=== PATIENT | female | born 1955 | race Caucasian/White ===

== ENCOUNTER 2017-05-06 06:32 | Inpatient (IN) | payer OTHER ==
[~2017-05-06] VITALS: Ht 165.1 cm; Wt 141.9 kg
--- NOTE | ~2017-05-06 | CATHLAB ---
[facility] [address] [email or web address] [address] INVASIVE PROCEDURE REPORT Name: KOLBY WILHELM Room #: 213-P ADM IN ..#: [id number] Admission: 05/06/17 Attend Phys: Jayjay Merchant Discharge: Date of : 55 Date of Service: 05/09/17 1737 Report #: [id number] THIS REPORT FOR: //name// APPROVED REPORT Patient Details Patient Status: In-Patient Room #: The patient is a 61 year-old female Event Personnel Mando Blanco Dietitian Therapeutic, Jose Crawford RN, Ezekiel Johnson RN, RN, Jo-Ann Santizo Sandifer, David Monitor Procedures Performed Art Access - R femoral artery* Left Heart Cath w/or w/o Coronaries [id number] [facility] [address] Initial Mod Sed Same Phys/QHP Gr5y [id number] 76582 Mod Sed Same Phys/QHP Ea [id number] Hemostasis with Manual pressure Indication Dyspnea, Positive stress test, Chest pain Risk Factors Obesity, Hypercholesterolemia, Coronary Artery DiseaseHypertension Previous Procedures/Diagnoses Previous PCI Procedure Narrative The Right Wrist^ was infiltrated with 1% Lidocaine subcutaneous anesthesia. A PINNACLE 4FR Sheath #[id number] sheath was inserted into the RFA^. Coronary angiography was performed using coronary diagnostic catheters. The right coronary system was accessed and visualized with a JR4 catheter. The left coronary system was accessed and visualized with a 4FR JL 5.0 #[id number] catheter. The left ventricle was accessed and visualized with a Pigtail catheter. Left ventricular/Aortic Valve gradient assessed via catheter pullback. Left ventriculogram was performed in 30 degree projection. Hemostasis was obtained with manual pressure following sheath removal without any complications. The patient tolerated the procedure well and there were no complications associated with the procedure. There was no hematoma. [facility] [address] [place] [address] INVASIVE PROCEDURE REPORT Name: KOLBY WILHELM Room #: 213-P [facility] IN ..#: [id number] Admission: 05/06/17 Attend Phys: Jayjay Merchant Discharge: Date of : 55 Date of Service: 05/09/17 1737 Report #: [id number] Intraoperative Conscious Sedation Sedation start time: 09:42 Case end Time: 10:16 Fentanyl 50 mcg Versed 2 mg Fluoro Time: 3.07 minutes Dose: 964 mGy Contrast Type and Amount: Omnipaque 110 ml Coronary Angiography The patient's coronary anatomy is right dominant. Diagnostic Cath Left Main patent vessel, with no flow-limiting lesions. LAD Patent vessel, with mild disease. Diagonal 1 Patent vessel, with no flow-limiting lesions. Diagonal 2 100% occlusion at the ostium, the mid and distal segments are filled via collateral circulation. Circumflex There is a moderate stenosis in the mid segment, 50%. OM1 Patent vessel with a moderate stenosis in the proximal segment, 40%. Right Coronary There is a stent in the midsegment, patent with mild restenosis. R PDA Patent vessel, with no flow-limiting lesions. Left Ventriculography The left ventricle is normal in size with normal contractility. The left ventricular ejection fraction is estimated to be >55%. Hemodynamics The aortic pressure is 145/91 mmHg with a mean of 115 mmHg. The left ventricular pressure is 144/20 mmHg with a mean of mmHg. The left ventricular end diastolic pressure is 40 mmHg. Conclusion 1. Patent stent in the mid segment of the RCA with mild restenosis. 2. Total occlusion of the second diagonal artery, with collateral filling of the mid and distal segments. Recommend medical therapy. [facility] [address] [place] [address] INVASIVE PROCEDURE REPORT Name: KOLBY WILHELM Room #: 213-P [facility] IN .R.#: [id number] Admission: 05/06/17 Attend Phys: Jayjay Merchant Discharge: Date of : 55 Date of Service: 05/09/171736 Report #: [id number] 3. Moderate stenosis in the mid left circumflex artery and OM1. 4. Normal LV systolic function. <ELECTRONICALLY SIGNED> By: Mando Blanco MD 05/09/17 173 36 1737 Mando Blanco MD /INF
--- NOTE | ~2017-05-06 | EKG ---
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
[2017-05-06 06:37] VITALS: BP 158/69
[2017-05-06] MEDS ORDERED: PREDNISONE 10 M10 MG PO (07:04)
[2017-05-06] MEDS ORDERED: NORVASC5 MG PO (07:05)
[2017-05-06] MEDS ORDERED: PROTONIX40 M1 PO (07:05)
[2017-05-06] MEDS ORDERED: NORCO 5-325 TA1 EACH PO (07:06)
[2017-05-06] MEDS ORDERED: TRIAMCINOLONE A80 G2 TOP (07:06)
[2017-05-06] MEDS ORDERED: LOPRESSOR100 M1 PO (07:07)
[2017-05-06] MEDS ORDERED: REQUIP 1 MG TABL1 M1 PO (07:07)
[2017-05-06] MEDS ORDERED: NEURONTIN 300300 M1 PO (07:08)
[2017-05-06] MEDS ORDERED: AMBIEN 5 MG TABL5 M1 PO (07:08)
[2017-05-06] MEDS ORDERED: METFORMIN HCL500 MG PO (07:08)
[2017-05-06] MEDS ORDERED: ATORVASTATIN CA40 MG PO (07:09)
[2017-05-06] MEDS ORDERED: COZAAR 50 MG TA50 M2 PO (07:09)
[2017-05-06 07:12] LABS: ABSOLUTE NEUTROPHILS 10.2 thou/uL (1.4-8.2); BASOPHILS 0.9 % (0.0-2.0); EOSINOPHILS 0.5 % (0.0-3.0); HEMATOCRIT 45.8 % (37.0-47.0); LYMPHOCYTES 21.2 % (24.0-44.0); MCH 28.8 pg (26.0-34.0); MCHC 32.8 g/dL (28.0-37.0); MONOCYTES 8.2 % (1.0-8.0); PLATELET COUNT 288 thou/uL (150-400); POLYS 69.2 % (36.0-66.0); RDW 17.1 % (10.5-14.5); WBC 14.8 thou/uL (4.0-11.0)
[2017-05-06 07:19] LABS: ANION GAP 11 mmol/L (7-16); BUN 20 mg/dL (7-18); CALCIUM 9.6 mg/dL (8.5-10.1); CHLORIDE 102 mmol/L (98-107); CO2 26 mmol/L (21-32); CREATININE 0.8 mg/dL (0.6-1.0); GLUCOSE 104 mg/dL (74-106); POTASSIUM 4.7 mmol/L (3.5-5.1); SODIUM 139 mmol/L (136-145)
[2017-05-06 07:27] LABS: TROPONIN-I < 0.04 ng/mL (<0.06)
[2017-05-06 07:33] LABS: APTT 21.7 Seconds (24.5-32.8); PROTIME 9.7 Seconds (9.3-11.4)
[2017-05-06 15:49] VITALS: BP 111/57
[2017-05-06 16:44] VITALS: BP 113/85
[2017-05-06 16:55] VITALS: BP 121/69
[2017-05-06 20:00] VITALS: BP 110/61
[2017-05-07 03:04] LABS: CHLORIDE 102 mmol/L (98-107); POTASSIUM 4.1 mmol/L (3.5-5.1); SODIUM 139 mmol/L (136-145)
[2017-05-07 04:10] LABS: ALBUMIN 3.4 g/dL (3.4-5.0); ANION GAP 9 mmol/L (7-16); BUN 22 mg/dL (7-18); CALCIUM 8.6 mg/dL (8.5-10.1); CO2 28 mmol/L (21-32); CREATININE 0.8 mg/dL (0.6-1.0); GLUCOSE 120 mg/dL (74-106); PHOSPHORUS 5.8 mg/dL (2.5-4.9)
[2017-05-07 04:11] LABS: TROPONIN-I < 0.04 ng/mL (<0.06)
[2017-05-07 04:30] VITALS: BP 123/78
[2017-05-07 07:30] VITALS: BP 131/78
[2017-05-07 11:35] VITALS: BP 131/60
[2017-05-07 15:45] VITALS: BP 108/58
[2017-05-07 19:48] VITALS: BP 127/68
[2017-05-07 23:49] VITALS: BP 134/83
[2017-05-08 03:49] VITALS: BP 131/84
[2017-05-08 07:40] VITALS: BP 135/66
[2017-05-08 11:50] VITALS: BP 115/67
[2017-05-08 15:35] VITALS: BP 127/65
[2017-05-08 19:45] VITALS: BP 104/59
[2017-05-09 03:39] VITALS: BP 118/61
[2017-05-09 07:42] VITALS: BP 118/71
[2017-05-09] MEDS ORDERED: ASPIR 8181 MG PO (14:35)
[2017-05-09 15:19] VITALS: BP 118/71
[2017-12-15] MEDS ORDERED: VITAMIN D1000 UNI1 PO (20:54)
[2017-12-16] MEDS ORDERED: OXYBUTYNIN 5 MG5 M2 PO (00:31)
[2017-12-16] MEDS ORDERED: LISINOPRIL10 MG PO (00:33)
[2017-12-16] MEDS ORDERED: CIPRODEX OTIC7.5 ML OTIC (14:31)
== END 2017-05-09 17:45 | disposition home or self-care (01) | DRG 287 ==
LOC: ER 06:32 → EROBS 07:42 → 2N 07:42 → ENTRNSPT 05-09 15:29 → EDTRNSPTSTS 05-09 15:33 → 2N 05-09 17:45
PROVIDERS: Emergency Medicine; Hospitalist
PROC: B215YZZ Fluoroscopy of Left Heart using Other Contrast (ICD-10-PCS; principal; 2017-05-09)
PROC: 4A023N7 Measurement of Cardiac Sampling and Pressure, Left Heart, Percutaneous Approach (ICD-10-PCS; principal; 2017-05-09)
PROC: B211YZZ Fluoroscopy of Multiple Coronary Arteries using Other Contrast (ICD-10-PCS; principal; 2017-05-09)
DX: I24.9 Acute ischemic heart disease, unspecified (principal); I25.10 Atherosclerotic heart disease of native coronary artery without angina pectoris; E11.9 Type 2 diabetes mellitus without complications; I10 Essential (primary) hypertension; E78.5 Hyperlipidemia, unspecified; E66.01 Morbid (severe) obesity due to excess calories; E78.00 Pure hypercholesterolemia, unspecified; M54.9 Dorsalgia, unspecified; G89.29 Other chronic pain; G47.33 Obstructive sleep apnea (adult) (pediatric); Z88.0 Allergy status to penicillin; Z88.7 Allergy status to serum and vaccine; Z79.899 Other long term (current) drug therapy; I25.2 Old myocardial infarction; Z82.49 Family history of ischemic heart disease and other diseases of the circulatory system; Z83.3 Family history of diabetes mellitus; Z68.43 Body mass index [BMI] 50.0-59.9, adult; Z95.5 Presence of coronary angioplasty implant and graft
CPT/HCPCS: 10081

== ENCOUNTER 2018-02-08 12:41 | Emergency (ER) | payer OTHER ==
[~2018-02-08] VITALS: Ht 165.1 cm; Wt 141.5 kg
[~2018-02-08 12:41] MED LIST: AMBIEN 5 MG TABL5 M1 PO; ASPIR 8181 MG PO; ATORVASTATIN CA40 MG PO; CIPRODEX OTIC7.5 ML OTIC; COZAAR 50 MG TA50 M2 PO; LISINOPRIL10 MG PO; LOPRESSOR100 M1 PO; METFORMIN HCL500 MG PO; NEURONTIN 300300 M1 PO; NORCO 5-325 TA1 EACH PO; NORVASC5 MG PO; OXYBUTYNIN 5 MG5 M2 PO; PREDNISONE 10 M10 MG PO; PROTONIX40 M1 PO; REQUIP 1 MG TABL1 M1 PO; TRIAMCINOLONE A80 G2 TOP; VITAMIN D1000 UNI1 PO
[2018-02-08] MEDS ORDERED: MOBIC7.5 MG PO (16:02)
== END 2018-02-08 16:30 | disposition home or self-care (01) ==
LOC: ER 12:41
DX: S80.01XA Contusion of right knee, initial encounter (principal); S80.02XA Contusion of left knee, initial encounter; I10 Essential (primary) hypertension; E78.5 Hyperlipidemia, unspecified; E11.9 Type 2 diabetes mellitus without complications; J45.909 Unspecified asthma, uncomplicated; I25.10 Atherosclerotic heart disease of native coronary artery without angina pectoris; M79.7 Fibromyalgia; G25.81 Restless legs syndrome; G89.29 Other chronic pain; M54.9 Dorsalgia, unspecified; L71.9 Rosacea, unspecified; Z88.8 Allergy status to other drugs, medicaments and biological substances; Z90.10 Acquired absence of unspecified breast and nipple; Z88.0 Allergy status to penicillin; Z88.7 Allergy status to serum and vaccine; X58.XXXA Exposure to other specified factors, initial encounter; Y92.89 Other specified places as the place of occurrence of the external cause; Y93.89 Activity, other specified; Y99.8 Other external cause status

== ENCOUNTER 2018-07-11 10:32 | Emergency (ER) | payer OTHER ==
[~2018-07-11] VITALS: Ht 165.1 cm; Wt 138.3 kg
[~2018-07-11 10:32] MED LIST changes: +MOBIC7.5 MG PO
[2018-07-11 11:30] LABS: ABSOLUTE NEUTROPHILS 5.4 thou/uL (1.4-8.2); BASOPHILS 0.3 % (0.0-2.0); EOSINOPHILS 2.2 % (0.0-3.0); HEMATOCRIT 38.5 % (37.0-47.0); HEMOGLOBIN 12.5 gm/dL (12.0-15.0); MCH 27.6 pg (26.0-34.0); MCHC 32.5 g/dL (28.0-37.0); MCV 84.7 fL (80.0-100.0); MONOCYTES 7.4 % (1.0-8.0); PLATELET COUNT 217 thou/uL (150-400); POLYS 73.1 % (36.0-66.0); RBC 4.54 mil/uL (4.20-5.00); RDW 16.4 % (10.5-14.5); WBC 7.4 thou/uL (4.0-11.0)
[2018-07-11 11:42] LABS: ANION GAP 8 mmol/L (7-16); BUN 12 mg/dL (7-18); CALCIUM 9.3 mg/dL (8.5-10.1); CHLORIDE 101 mmol/L (98-107); CO2 30 mmol/L (21-32); CREATININE 0.9 mg/dL (0.6-1.0); GLUCOSE 118 mg/dL (74-106); POTASSIUM 4.5 mmol/L (3.5-5.1); SODIUM 139 mmol/L (136-145)
[2018-07-11 11:50] LABS: ALBUMIN 3.1 g/dL (3.4-5.0); SGOT 45 U/L (15-37); SGPT 43 U/L (30-65); TOTAL BILIRUBIN 0.3 mg/dL (<0.1-1.0); TOTAL PROTEIN 7.7 g/dL (6.4-8.2); TROPONIN-I <0.06 ng/mL (<0.06)
[2018-07-11] MEDS ORDERED: OSELB75 PO (12:06)
[2018-07-11] MEDS ORDERED: PROMETH-CODEIN 65 ML PO (12:06)
[2018-07-11] MEDS ORDERED: VENTOLIN HFA 1818 GM INH (12:15)
[2018-07-11 12:42] VITALS: BP 131/72
--- NOTE | 2018-07-12 08:20 | EKG ---
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: : 1955 Requested By: Kojo Rojas Order Number: [id number] MD: Dipak Lang Measurements Intervals [place] Rate: 79 P: 61 [place]: 181 QRS: 7 QRSD: 88 T: 42 QT: 375 QTc: 430 Interpretive Statements Sinus rhythm Normal tracing Compared to ECG 05/06/2017 06:31:00 No significant changes Electronically Signed On 07-12-2018 8:20:16 CDT by Dipak Lang [email or web address] ��������������������������������������������� <ELECTRONICALLY SIGNED> ���������������������������������������� By: Dipak Lang MD, [facility] ��������������������������������������������� 07/12/18 0820 1057 1057 Dipak Lang MD, FACC /EPI
== END 2018-07-11 12:42 | disposition home or self-care (01) ==
LOC: ER 10:32
PROVIDERS: Physician Assistant
DX: J11.1 Influenza due to unidentified influenza virus with other respiratory manifestations (principal); I10 Essential (primary) hypertension; E78.5 Hyperlipidemia, unspecified; E11.9 Type 2 diabetes mellitus without complications; J45.909 Unspecified asthma, uncomplicated; M79.7 Fibromyalgia; M54.9 Dorsalgia, unspecified; G89.29 Other chronic pain; I25.10 Atherosclerotic heart disease of native coronary artery without angina pectoris; Z88.0 Allergy status to penicillin; Z88.8 Allergy status to other drugs, medicaments and biological substances

== ENCOUNTER 2018-08-11 14:17 | Emergency (ER) | payer OTHER ==
[~2018-08-11] VITALS: Ht 165.1 cm; Wt 138.3 kg
[~2018-08-11 14:17] MED LIST changes: +OSELB75 PO; +PROMETH-CODEIN 65 ML PO; +VENTOLIN HFA 1818 GM INH
[2018-08-11 14:48] LABS: URINE CLARITY CLEAR
[2018-08-11 15:05] LABS: URINE COLOR DK ORANGE; URINE GLUCOSE-RANDOM* ND (Negative); URINE PROTEIN (DIPSTICK) ND (Negative); URINE SPECIFIC GRAVITY ND (1.005-1.035)
[2018-08-11 15:06] LABS: URINE BILIRUBIN ND (Negative); URINE BLOOD ND (Negative); URINE KETONES ND (Negative); URINE LEUKOCYTES-REFLEX ND (Negative); URINE NITRITE-REFLEX ND (Negative); URINE UROBILINOGEN ND E.U./dl (0.2-1.0)
[2018-08-11 15:08] LABS: BACTERIA-REFLEX 1-9 Few /HPF (None Seen); CASTS None Seen /LPF (None Seen); SQUAMOUS 4-10 Moderate /LPF (0-3); URINE RBC None Seen /HPF (0-2); URINE WBC-REFLEX 0-5 Rare /HPF (0-5)
[2018-08-11 15:09] LABS: CRYSTALS None Seen /LPF (None Seen)
[2018-08-11 15:10] VITALS: BP 157/83
[2018-08-11] MEDS ORDERED: MACROBID 100 M100 M2 PO (15:15)
[2018-08-11] MEDS ORDERED: DIFLUCAN200 MG PO (15:15)
[2018-08-11] MEDS ORDERED: PYRIDIUM100 M1 PO (15:15)
[2018-08-12] MEDS ORDERED: NORCO 5-325 TA1 EACH PO (06:31)
[2018-08-12] MEDS ORDERED: ZOFRAN ODT4 MG PO (06:31)
== END 2018-08-11 15:10 | disposition home or self-care (01) ==
LOC: ER 14:17
PROVIDERS: Student in an Organized Health Care Education/Training Program
DX: N39.0 Urinary tract infection, site not specified (principal); I10 Essential (primary) hypertension; E78.5 Hyperlipidemia, unspecified; E11.9 Type 2 diabetes mellitus without complications; F32.9 Major depressive disorder, single episode, unspecified; J45.909 Unspecified asthma, uncomplicated; I25.10 Atherosclerotic heart disease of native coronary artery without angina pectoris; M79.7 Fibromyalgia; M54.9 Dorsalgia, unspecified; G89.29 Other chronic pain; Z88.0 Allergy status to penicillin; Z88.8 Allergy status to other drugs, medicaments and biological substances

== ENCOUNTER 2018-08-12 03:41 | Emergency (ER) | payer OTHER ==
[~2018-08-12] VITALS: Ht 165.1 cm; Wt 138.3 kg
[~2018-08-12 03:41] MED LIST changes: +DIFLUCAN200 MG PO; +MACROBID 100 M100 M2 PO; +PYRIDIUM100 M1 PO
[2018-08-12 05:10] LABS: ABSOLUTE NEUTROPHILS 12.6 thou/uL (1.4-8.2); BASOPHILS 0.2 % (0.0-2.0); EOSINOPHILS 0.6 % (0.0-3.0); HEMOGLOBIN 13.4 gm/dL (12.0-15.0); LYMPHOCYTES 2.7 % (24.0-44.0); MCH 26.7 pg (26.0-34.0); MCHC 31.9 g/dL (28.0-37.0); MCV 83.6 fL (80.0-100.0); MONOCYTES 3.1 % (1.0-8.0); PLATELET COUNT 250 thou/uL (150-400); POLYS 93.4 % (36.0-66.0); RBC 5.03 mil/uL (4.20-5.00); RDW 17.2 % (10.5-14.5); WBC 13.5 thou/uL (4.0-11.0)
[2018-08-12 05:16] LABS: CALCIUM 9.2 mg/dL (8.5-10.1); CREATININE 1.1 mg/dL (0.6-1.0); POTASSIUM 5.3 mmol/L (3.5-5.1)
[2018-08-12 05:23] LABS: ALBUMIN 3.1 g/dL (3.4-5.0); DIRECT BILIRUBIN 0.1 mg/dL (<0.1-0.3); TOTAL BILIRUBIN 0.3 mg/dL (<0.1-1.0); TOTAL PROTEIN 7.9 g/dL (6.4-8.2)
[2018-08-12] MEDS ORDERED: ZOFRAN ODT4 MG PO (06:31)
[2018-08-12] MEDS ORDERED: NORCO 5-325 TA1 EACH PO (06:31)
[2018-08-12 07:03] VITALS: BP 135/60
--- NOTE | 2018-08-12 08:05 | EKG ---
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 : 1955 Requested By: Ban Arrieta Order Number: [id number] MD: Markus Perkins Measurements Intervals [place] Rate: 115 P: 45 [place]: 164 QRS: 9 QRSD: 87 T: 47 QT: 307 QTc: 425 Interpretive Statements Sinus tachycardia Low voltage, precordial leads Baseline wander in lead(s) V5 Compared to ECG 07/11/2018 10:57:33 Low QRS voltage now present Sinus rhythm no longer present Electronically Signed On 08-12-2018 8:05:12 CDT by Markus Perkins [email or web address] ��������������������������������������������� <ELECTRONICALLY SIGNED> ���������������������������������������� By: Markus Perkins MD ��������������������������������������������� 08/12/18 0805 0354 0354 Markus Perkins MD /THANIA
== END 2018-08-12 07:04 | disposition home or self-care (01) ==
LOC: ER 03:41
PROVIDERS: Emergency Medicine
DX: S16.1XXA Strain of muscle, fascia and tendon at neck level, initial encounter (principal); S76.012A Strain of muscle, fascia and tendon of left hip, initial encounter; S76.011A Strain of muscle, fascia and tendon of right hip, initial encounter; N39.0 Urinary tract infection, site not specified; R53.1 Weakness; I10 Essential (primary) hypertension; E78.5 Hyperlipidemia, unspecified; E11.9 Type 2 diabetes mellitus without complications; I25.2 Old myocardial infarction; J45.909 Unspecified asthma, uncomplicated; I25.10 Atherosclerotic heart disease of native coronary artery without angina pectoris; M79.7 Fibromyalgia; G89.29 Other chronic pain; Z79.899 Other long term (current) drug therapy; Z88.0 Allergy status to penicillin; Z88.8 Allergy status to other drugs, medicaments and biological substances; Z88.7 Allergy status to serum and vaccine; W18.30XA Fall on same level, unspecified, initial encounter; Y93.89 Activity, other specified; Y92.89 Other specified places as the place of occurrence of the external cause; Y99.8 Other external cause status

== ENCOUNTER 2018-08-14 20:18 | Inpatient (IN) | payer OTHER ==
[~2018-08-14] VITALS: Ht 165.1 cm; Wt 139.8 kg
--- NOTE | ~2018-08-14 | HC ---
[facility] [place] [address] [place] [address] CONSULTATION Name: KOLBY WILHELM Room #: 450-P [facility] IN M.R.#: [id number] Admission: 08/14/18 ������������������ Attend Phys: Jayjay Elliott Discharge: ������������������ Date of : 55 Report #: [id number] THIS REPORT FOR: //name// CC: HUMA Elliott Physician staff DATE OF SERVICE: 08/15/2018 ATTENDING PHYSICIAN: Jayjay Elliott MD. REASON FOR CONSULTATION: Acute kidney injury. HISTORY OF PRESENT ILLNESS: A 62-year-old patient, underlying diabetes and hypertension, developed a UTI, was given narcotics, became increasingly sleepy, had some falls, was brought to the Emergency Room. Creatinine chucho from 1.1-5.1 over the course of a couple of days despite antibiotics at home. She was admitted to the hospital, given IV fluids and antibiotics, Kayexalate for hyperkalemia and is seen in the ICU. PAST MEDICAL HISTORY: History of coronary artery disease, previous MD and coronary stent 4 years ago; history of diabetes with peripheral neuropathy, but no known history of renal disease or retinopathy; history of hypertension; some degree of generalized debility, although gets around well at home, uses a wheelchair when out of the house; history of depression and asthma. HOME MEDICATIONS: Include Macrobid 100 mg b.i.d. with Pyridium, albuterol inhaler, hydrocodone, Synthroid 50 mcg daily, Protonix 40 mg daily, gabapentin 600 mg b.i.d., Ambien 5 mg at bedtime p.r.n., oxybutynin 5 mg b.i.d., lisinopril 10 mg b.i.d., metoprolol 100 mg b.i.d., metformin 1000 mg b.i.d. FAMILY HISTORY: Strongly positive for coronary artery disease and diabetes. SOCIAL HISTORY: Lives at home with a caregiver. No cigarettes, alcohol, or illicit drugs. REVIEW OF SYSTEMS: GENERAL: She has been rather ill over the last few days. EYES: Her vision has been occasional double vision. ENT: Hearing okay. Apparently, had some mouth sores. ENDOCRINE: Positive for the diabetes and thyroid disease. RESPIRATORY: Easily short-winded with occasional wheezing. CARDIAC: No chest pain, angina or palpitations recently. GASTROINTESTINAL: Appetite has been poor. No diarrhea or bloody stool. GENITOURINARY: Burning with urination. NEUROLOGIC: Generalized weakness with some falls. [facility] [address] [place] [address] CONSULTATION Name: KOLBY WILHELM Room #: 450-P [facility] IN [facility].#: [id number] Admission: 08/14/18 ������������������ Attend Phys: Jayjay Elliott Discharge: ������������������ Date of : 55 Report #: [id number] MUSCULOSKELETAL: Generalized arthritis. PHYSICAL EXAMINATION: GENERAL: This is a rather obese patient, seen in ICU. She is awake and alert and giving a reasonably good history. SKIN: Somewhat terra complected. SKELETAL: Rather obese. HEENT: Extraocular movements are full. Vision is intact. Hearing is intact. Mucous membranes are moist. NECK: Supple. CHEST: Clear to auscultation. HEART: Regular. ABDOMEN: Soft and nontender. EXTREMITIES: Show no peripheral edema. NEUROLOGIC: Grossly intact. LABORATORY DATA: The white blood count 3 days ago was 13.5, platelets were 250. The white count now down to 8.3. Hemoglobin at 10.6. On admission, sodium 134, potassium 5.9, chloride 102, bicarbonate 24, BUN 80, creatinine 5.1. This morning, creatinine down to 3.9, potassium down to 4.9, albumin was 3.1, down to 2.1. ASSESSMENT AND PLAN: 1. Acute kidney injury. Creatinine is up. CPK was up slightly 2678. Appropriate IV fluids have being given. Creatinine is falling. I suspect she will continue to improve. Urinalysis did not suggest diabetic nephropathy or heavy proteinuria. 2. Urinary tract infection, being treated appropriately. 3. Diabetes mellitus with peripheral neuropathy. 4. History of hypertension, currently hypotensive and antihypertensives are being held. 5. History of depression. 6. Coronary artery disease, status post percutaneous coronary intervention with stents. ��������������������������������������������� ���������������������������������������� By: ��������������������������������������������� 0949 0059 Charlie Veloz MD /nt
[~2018-08-14 20:18] MED LIST changes: +ZOFRAN ODT4 MG PO
[2018-08-14 20:50] LABS: ABSOLUTE NEUTROPHILS 6.6 thou/uL (1.4-8.2); BASOPHILS 0.5 % (0.0-2.0); EOSINOPHILS 0.2 % (0.0-3.0); HEMATOCRIT 32.8 % (37.0-47.0); LYMPHOCYTES 12.9 % (24.0-44.0); MCH 26.9 pg (26.0-34.0); MCHC 32.5 g/dL (28.0-37.0); MCV 82.9 fL (80.0-100.0); MONOCYTES 7.6 % (1.0-8.0); PLATELET COUNT 198 thou/uL (150-400); POLYS 78.8 % (36.0-66.0); RBC 3.96 mil/uL (4.20-5.00); RDW 17.4 % (10.5-14.5); WBC 8.3 thou/uL (4.0-11.0)
[2018-08-14 20:51] LABS: HEMOGLOBIN 10.7 gm/dL (12.0-15.0)
[2018-08-14 20:58] LABS: CALCIUM 7.6 mg/dL (8.5-10.1); POTASSIUM 5.9 mmol/L (3.5-5.1)
[2018-08-14 21:04] LABS: ALBUMIN 2.1 g/dL (3.4-5.0); DIRECT BILIRUBIN 0.2 mg/dL (<0.1-0.3); TOTAL BILIRUBIN 0.4 mg/dL (<0.1-1.0); TOTAL PROTEIN 6.3 g/dL (6.4-8.2)
[2018-08-14 21:08] LABS: CREATININE 5.1 mg/dL (0.6-1.0)
[2018-08-14 21:09] LABS: URINE BILIRUBIN NEGATIVE (Negative); URINE BLOOD 3+ (Negative); URINE CLARITY CLOUDY; URINE COLOR YELLOW; URINE GLUCOSE-RANDOM* NEGATIVE (Negative); URINE KETONES NEGATIVE (Negative); URINE LEUKOCYTES-REFLEX TRACE (Negative); URINE NITRITE-REFLEX NEGATIVE (Negative); URINE PROTEIN (DIPSTICK) 1+ (Negative); URINE SPECIFIC GRAVITY >= 1.030 (1.005-1.035); URINE UROBILINOGEN 0.2 E.U./dl (0.2-1.0)
[2018-08-14 21:19] LABS: URINE CREATININE-RANDOM* 209.6 mg/dL
[2018-08-14 21:49] LABS: FINE GRANULAR CASTS 0-3 Few /LPF (None Seen); MUCUS 0-3 Light strn/LPF (None Seen); SQUAMOUS >10 Many /LPF (0-3)
[2018-08-14 21:50] LABS: AMORPHOUS URATES Moderate /LPF (None Seen); BACTERIA-REFLEX >30 Many /HPF (None Seen); CRYSTALS None Seen /LPF (None Seen); TRANSITIONAL EPITHEL CELL 0-3 Few /LPF (None Seen); URINE RBC 3-10 Few /HPF (0-2); URINE WBC-REFLEX 0-5 Rare /HPF (0-5)
[2018-08-14 22:06] LABS: % SATURATION 3 % (20-39); IRON 12 ug/dL (50-170)
[2018-08-14 22:39] LABS: TIBC 423 ug/dL (250-450)
[2018-08-14 22:50] VITALS: BP 90/47
[2018-08-15] VITALS (17 sets, daily range): BP systolic 85–149; BP diastolic 37–66
[2018-08-15] MEDS ORDERED: SYNTHROID50 MCG PO (01:58)
[2018-08-15 06:01] LABS: HEMATOCRIT 33.2 % (37.0-47.0); HEMOGLOBIN 10.6 gm/dL (12.0-15.0); MCH 26.6 pg (26.0-34.0); MCV 82.9 fL (80.0-100.0); RDW 17.7 % (10.5-14.5); WBC 6.3 thou/uL (4.0-11.0)
[2018-08-15 06:08] LABS: CALCIUM 7.6 mg/dL (8.5-10.1)
[2018-08-15 06:10] LABS: CREATININE 3.9 mg/dL (0.6-1.0); POTASSIUM 4.9 mmol/L (3.5-5.1)
--- NOTE | 2018-08-15 07:21 | EKG ---
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 : 1955 Requested By: Alan Wade Order Number: [id number] MD: Dipak Lang Measurements Intervals [place] Rate: 85 P: 70 [place]: 166 QRS: 14 QRSD: 100 T: 18 QT: 363 QTc: 432 Interpretive Statements Sinus rhythm No significant abnormality Compared to ECG 08/12/2018 03:54:21 Sinus tachycardia no longer present Electronically Signed On 08-15-2018 7:21:13 CDT by Dipak Lang [email or web address] ��������������������������������������������� <ELECTRONICALLY SIGNED> ���������������������������������������� By: Dipak Lang MD, [facility] ��������������������������������������������� 08/15/18 07 14 14 Dipak Lang MD, FACC /EPI
--- NOTE | 2018-08-15 08:21 | NUR ---
PT MORE ALERT THIS AM. MONITOR SHOW SR. TMAX98.4 AX. MAINT IV INFUSING. SHEREE PO FLUIDS.DID HAVE LARGE BM AFTER KEXYLATE. LABS IMPROVED THIS AM WITH k DOWN TO 4.9. UPDATED DR BLANCAS WITH PT STATUS/LABS/UO. CONT PLAN OF CARE
[2018-08-15 09:45] LABS: URINE BILIRUBIN NEGATIVE (Negative); URINE BLOOD 3+ (Negative); URINE CLARITY SL CLOUDY; URINE COLOR YELLOW; URINE GLUCOSE-RANDOM* NEGATIVE (Negative); URINE KETONES NEGATIVE (Negative); URINE NITRITE-REFLEX NEGATIVE (Negative); URINE PROTEIN (DIPSTICK) NEGATIVE (Negative); URINE SPECIFIC GRAVITY <= 1.005 (1.005-1.035); URINE UROBILINOGEN 0.2 E.U./dl (0.2-1.0)
[2018-08-15 09:48] LABS: URINE LEUKOCYTES-REFLEX 2+ (Negative)
[2018-08-15 09:53] LABS: HYALINE CASTS 0-3 Few /LPF (None Seen); SQUAMOUS >10 Many /LPF (0-3)
[2018-08-15 09:54] LABS: AMORPHOUS URATES Moderate /LPF (None Seen); BACTERIA-REFLEX 1-9 Few /HPF (None Seen); TRANSITIONAL EPITHEL CELL 0-3 Few /LPF (None Seen); URINE RBC None Seen /HPF (0-2)
[2018-08-15 11:10] LABS: HEMOGLOBIN 10.2 g/dL (11.1-15.9)
--- NOTE | 2018-08-15 12:08 | NUR ---
PATIENT ALERT AND ORIENTED X4, INTERMITTENTLY FALLS ASLEEP. SINUS RHYTHM ON FRIT MIXER AND BURNER. ON 2L NASAL CANNULA. TOLERATING RENAL DIET. INMAN PATENT AND DRAINING, TO KEEP IN PER DR. CABA. SKIN INTACT. THRUSH NOTED TO MOUTH. PAIN MILDLY CONTROLLED WITH MEDICATION. NO SIGNS OF ACUTE DISTRESS NOTED AT THIS TIME. REPORT CALLED TO ONCOMING NURSE. PATIENT TRANSFERRED TO [facility].
--- NOTE | 2018-08-15 13:37 | NUR ---
Case opened to follow for dc planning. Pt is a&ox4 and able to complete cm assessment. She expressed concerns about her hip pain r/t a fall at home. She reports having UTI and fever at home and relates that to her weakness and falls. She has been to the ER 3x in the past week. She manages her medicines in a pill box and feels as though she took less pain medication than she normally does. She lives with her sign other of many years Bam. She does not have a dpoa document in place but would want him to make decisions for her if needed. AD/DPOA information provided. She is interested in completing this prior to dc and will discuss with Bam. She indicates that she has RN visits 1xwkly through her [place] medicaid and a home based adult protective caseworker through [facility] for her depression. Her cm Pamlea Shay was here visiting this morning. She helps take her to her dr and mental health appts. Prior to this past week, she was indep with transfers and gait within the condo. She used a bath bench in the shower and a stool in the kitchen for rest breaks. She reports that Bam was working with a program to try and become a paid caregiver for her. He does the errands and homemaker tasks. She uses a w/c when she goes out to appts and has 2 steps to get in and out. Her condo is on the main floor at ground level. No steps inside. She is receptive to therapy evals. Cm role introduced. Will await therapy recommendations and ask for rehab medicine eval too.
--- NOTE | 2018-08-15 19:52 | NUR ---
Received pt from the ICU, alert and oriented x 4. FC patent and draining light yelllow urine. Thrush noted in pt's mouth, ordered soft food for the pt since she cannot tolerate regular textures. Pt did complain of pain and mentioned that tramadol does not work. Informed Dr. Elliott, was told that he will no prescribe any other pain medication. PT an OT worked with the pt, will return tomorrow. POC followed, endorsed to the night nurse the conerns of the pt.
--- NOTE | 2018-08-15 20:10 | NUR ---
Pt. c/o left hip and is tearful. She was offered a po tramadol, but pt. voiced that it does not help. Margaret RODRIGUEZ/physician notified with new orders (see cpoe).
[2018-08-16 03:50] VITALS: BP 112/69
--- NOTE | 2018-08-16 04:35 | NUR ---
Pt. rested quietly during the night when checked on during frequent rounds. Po percocet given earlier for left hip pain (see emar) with some relief noted. Aqua pad also applied to her left hip. Bed alarm is on.
[2018-08-16 04:57] LABS: ALBUMIN 2.2 g/dL (3.4-5.0); CALCIUM 8.1 mg/dL (8.5-10.1); PHOSPHORUS 3.6 mg/dL (2.5-4.9); POTASSIUM 5.5 mmol/L (3.5-5.1)
[2018-08-16 05:11] LABS: CREATININE 1.6 mg/dL (0.6-1.0); TROPONIN-I 0.67 ng/mL (<0.06)
--- NOTE | 2018-08-16 05:35 | NUR ---
Pt. resting quietly in the bed and denies any chest pain and vss.
[2018-08-16 06:01] LABS: HEMOGLOBIN 10.9 gm/dL (12.0-15.0); MCH 26.7 pg (26.0-34.0); MCHC 31.9 g/dL (28.0-37.0); MCV 83.6 fL (80.0-100.0); RBC 4.07 mil/uL (4.20-5.00); RDW 17.6 % (10.5-14.5)
--- NOTE | 2018-08-16 07:09 | EKG ---
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 : 1955 Requested By: Margaret Joshi Order Number: [id number] MD: Markus Perkins Measurements Intervals [place] Rate: 90 P: 31 [place]: 160 QRS: 14 QRSD: 86 T: 30 QT: 337 QTc: 413 Interpretive Statements Sinus rhythm Low voltage, precordial leads Compared to ECG 08/14/2018 21:15:00 Low QRS voltage now present Electronically Signed On 08-16-2018 7:09:50 CDT by Markus Perkins [email or web address] ��������������������������������������������� <ELECTRONICALLY SIGNED> ���������������������������������������� By: Markus Perkins MD ��������������������������������������������� 08/16/18708 6 6 Markus Perkins MD /THANIA
[2018-08-16 07:39] VITALS: BP 120/58
--- NOTE | 2018-08-16 10:32 | NUR ---
Nutrition: Pt admitted with sepsis, UTI, OMI, hyperkalemia. Seen for sepsis dx. On renal diet. Thrush present but improving per pt. Appetite is okay with around 50% intake, decreased due to thrush. UBW 300 lbs, current 304 lbs. Assisted in ordering soft foods. Will provide yogurt at lunch today only, okay per dietitian. Agreed to Nepro. Will order TID until intake/thrush improves. With interventions in place, low nutrition risk.
--- NOTE | 2018-08-16 12:43 | 2DMMODE ---
[facility] [address] [place] [address] 2 D/M-MODE ECHOCARDIOGRAM Name: KOLBY WILHELM Room #: 450-P [facility] IN ..#: [id number] ������������� Admission: 08/14/18 ������������� Attend Phys: Jayjay Merchant Discharge: ��� ������������� ��� Date of : 55 Date of Service: 08/16/18 1243 �� Report #: [id number] �������� ��������������������������������������������[id number] THIS REPORT FOR: //name// APPROVED REPORT Study performed: 08/16/2018 08:19:29 EXAM: Comprehensive 2D, Doppler, and color-flow Echocardiogram with contrast Patient Location: Bedside Room #: [facility] Status: routine BSA: 2.36 HR: 86 bpm BP: 120/58 mmHg Rhythm: NSR Other Information Study Quality: Fair Indications Hx. CAD, anemia, renal failure, hypotension, sepsis, weakness. Echo Enhancing Agent Indication: Endocardial border delineation Agent(s) / Amount(s) Used: Optison 6 cc 2D Dimensions RVDd: 33.11 mm IVSd: 11.36 (7-11mm) LVOT Diam: 22.50 (18-24mm) LVDd: 50.71 mm PWd: 11.16 (7-11mm) Ascending Ao: 39.83 (22-36mm) LVDs: 32.82 (25-40mm) Aortic Root: 31.72 mm Volumes Left Atrial Volume (Systole) Single Plane 4CH: 47.82 mL Single Plane 2CH: 75.86 mL LA ESV Index: 27.67 mL/m2 Aortic Valve AoV Peak Yash.: 2.15 m/s AO Peak Gr.: 18.42 mmHg LVOT Max P.36 mmHg LVOT Max V: 1.36 m/s VU Vmax: 2.51 cm2 [facility] [address] [place] [address] 2 D/M-MODE ECHOCARDIOGRAM Name: KOLBY WILHELM Room #: 450-[facility] IN ..#: [id number] ������������� Admission: 08/14/18 ������������� Attend Phys: Jayjay Merchant Discharge: ��� ������������� ��� Date of : 55 Date of Service: 08/16/18 1243 �� Report #: [id number] �������� ��������������������������������������������[id number] Mitral Valve E/A Ratio: 1.4 MV Decel. Time: 244.06 ms MV E Max Yash.: 1.12 m/s MV A Yash.: 0.82 m/s MV PHT: 70.78 ms IVRT: 55.36 ms Pulmonary Valve PV Peak Yash.: 1.23 m/s PV Peak Gr.: 6.03 mmHg Pulmonary Vein P Vein S: 0.47 m/s P Vein D: 0.55 m/s P Vein S/D Ratio: 0.85 Tricuspid Valve TR Peak Yash.: 3.64 m/s RAP Estimate: 15.00 mmHg TR Peak Gr.: 52.93 mmHg PA Pressure: 68.00 mmHg Left Ventricle The left ventricle is normal size. There is normal LV segmental wall motion. There is normal left ventricular wall thickness. The left ventricular systolic function is normal. The left ventricular ejection fraction is within the normal range. LVEF is 55-60%. The left ventricular diastolic function is normal. Right Ventricle The right ventricle is normal size. The right ventricular systolic function is normal. Atria The left atrium size is normal. The right atrium size is normal. Aortic Valve The aortic valve is mildly calcified, trileaflet. No aortic regurgitation is present. Mild aortic stenosis. Mitral Valve The mitral valve is normal in structure. There is no mitral valve regurgitation noted. No evidence of mitral valve stenosis. Tricuspid Valve The tricuspid valve is normal in structure. Moderate tricuspid [address] [address] 2 D/M-MODE ECHOCARDIOGRAM Name: MELONIEKOLBY Hay Room #: 450-P [facility] IN .R.#: [id number] ������������� Admission: 08/14/18 ������������� Attend Phys: Jayjay Merchant Discharge: ��� ������������� ��� Date of : 55 Date of Service: 08/16/18 1243 �� Report #: [id number] �������� ��������������������������������������������[id number] regurgitation. Estimated PAP of 65 mmHg. Pulmonic Valve Pulmonic valve is not well visualized. There is no pulmonic valvular regurgitation seen. Great Vessels The aortic root is normal in size. Ascending aorta appears mildly dilated (4 cm). IVC is dilated and collapses >50% with inspiration. Pericardium There is no pericardial effusion. <Conclusion> The left ventricular systolic function is normal. There is normal LV segmental wall motion. LVEF is 55-60%. Normal diastolic function The aortic valve is mildly calcified, trileaflet. Mild aortic stenosis, no insufficiency. The mitral valve is normal in structure. No mitral valve regurgitation Moderate tricuspid regurgitation. Estimated PAP of 65 mmHg. Ascending aorta appears mildly dilated (4 cm). There is no pericardial effusion. ��������������������������������������������� <ELECTRONICALLY SIGNED> ���������������������������������������� By: Dipak Lang MD, FACC ��������������������������������������������� 08/16/18 1243 1243 1243 Dipak Lang MD, FACC /INF
[2018-08-16 14:21] VITALS: BP 124/69
--- NOTE | 2018-08-16 15:37 | NUR ---
5N ACCESSED AND INDICATED THAT PT IS TOO HIGH LEVEL FOR ADMISSION. CARE TEAM INDICATED THAT PT WILL LIKELY BE MEDICALLY STABLE TO DISCHARGE HOME TOMORROW AND RESUME CAREGIVER SERVICES AND VISITS FROM THEIR NURSE. PT HAS ALL RECOMMENDED DME.
[2018-08-16 19:39] VITALS: BP 163/66
--- NOTE | 2018-08-16 19:40 | NUR ---
Assumed pt care this am, pt did not complain of pain. PINA chadwick. Was able to work with PT and OT and did well. Pt transfered from the bed to the chair for her dinner. Soft diet is still preferred, supplement is well tolerated. No issues or concerns identified by the pt.
[2018-08-17 03:00] VITALS: BP 110/90
--- NOTE | 2018-08-17 05:07 | NUR ---
Pt. has been up most of the night and has been attempting to get up out of bed without asking for assistance. She is also having periods of confusion. Pt. has been constantly taking off her tele leads,o2 and has been pulling at her catheter. Even after educating the pt. the importance of leaving these things in place, but she continues to remove them. Spoke to Margaret RODRIGUEZ and new orders to dc the malin catheter this am. Pt. given po pain meds for c/o left hip pain (see emar). Bed alarm is on.
[2018-08-17 05:55] LABS: ALBUMIN 2.3 g/dL (3.4-5.0); CALCIUM 8.8 mg/dL (8.5-10.1); POTASSIUM 4.6 mmol/L (3.5-5.1)
[2018-08-17 07:43] VITALS: BP 148/78
--- NOTE | 2018-08-17 08:41 | EKG ---
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 : 1955 Requested By: Margaret Joshi Order Number: [id number] MD: Markus Perkins Measurements Intervals [place] Rate: 87 P: 31 MS: 164 QRS: 13 QRSD: 97 T: 27 QT: 346 QTc: 417 Interpretive Statements Sinus rhythm Low voltage, precordial leads Compared to ECG 08/16/2018 05:27:59 No significant changes Electronically Signed On 08-17-2018 8:40:50 CDT by Markus Perkins [email or web address] ��������������������������������������������� <ELECTRONICALLY SIGNED> ���������������������������������������� By: Markus Perkins MD ��������������������������������������������� 08/17/18 0840 3 3 Markus Perkins MD /THANIA
[2018-08-17] MEDS ORDERED: CEFUROXIME500 MG PO (10:02)
[2018-08-17] MEDS ORDERED: REMERON15 MG PO (10:03)
[2018-08-17] MEDS ORDERED: NYSTATIN100000 UNI SW&SWALLOW (10:03)
[2018-08-17] MEDS ORDERED: TRAMADOL 50 MG50 MG PO (10:03)
[2018-08-17] MEDS ORDERED: NEURONTIN600 MG PO (10:03)
[2018-08-17 15:33] VITALS: BP 148/78
--- NOTE | 2018-08-17 20:24 | NUR ---
PATIENT ORIENTED BUT LETHARGIC IN AM. PATIENT FIANCE AT BEDSIDE IN AFTERNOON AND RELUCTANT TO TAKE PATIENT HOME. ONCE PATIENT WALKED TO BATHROOM WITH SBA, FIANCE OK WITH PATIENT DISCHARGE. PATIENT DISCHARGE TO HOME IN STABLE CONDITION WITH ALL PERSONAL BELONGINGS AND DISCHARGE INSTRUCTIONSA AND MEDICATIONS.
== END 2018-08-17 16:01 | disposition home or self-care (01) | DRG 871 ==
LOC: ER 20:18 → ICU 21:36 → EROBS 21:36 → 4W 21:36 → ICU 22:59 → 4W 08-15 11:57
PROVIDERS: Emergency Medicine; Internal Medicine Nephrology; Nurse Practitioner Acute Care; ADMIT Hospitalist
DX: A41.9 Sepsis, unspecified organism (principal); G93.41 Metabolic encephalopathy; N17.9 Acute kidney failure, unspecified; N39.0 Urinary tract infection, site not specified; M62.82 Rhabdomyolysis; B37.0 Candidal stomatitis; Z68.43 Body mass index [BMI] 50.0-59.9, adult; I10 Essential (primary) hypertension; E78.5 Hyperlipidemia, unspecified; F32.9 Major depressive disorder, single episode, unspecified; J45.909 Unspecified asthma, uncomplicated; I25.10 Atherosclerotic heart disease of native coronary artery without angina pectoris; G25.81 Restless legs syndrome; G89.29 Other chronic pain; M25.552 Pain in left hip; M25.551 Pain in right hip; M25.561 Pain in right knee; E03.9 Hypothyroidism, unspecified; R74.0 Nonspecific elevation of levels of transaminase and lactic acid dehydrogenase [LDH]; E86.0 Dehydration; E11.42 Type 2 diabetes mellitus with diabetic polyneuropathy; I95.2 Hypotension due to drugs; E66.01 Morbid (severe) obesity due to excess calories; K76.0 Fatty (change of) liver, not elsewhere classified; T40.605A Adverse effect of unspecified narcotics, initial encounter; D64.9 Anemia, unspecified; E87.6 Hypokalemia; Z88.0 Allergy status to penicillin; Z88.7 Allergy status to serum and vaccine; Z88.8 Allergy status to other drugs, medicaments and biological substances; I25.2 Old myocardial infarction; Z95.5 Presence of coronary angioplasty implant and graft; Z82.49 Family history of ischemic heart disease and other diseases of the circulatory system; Z83.3 Family history of diabetes mellitus; Z79.82 Long term (current) use of aspirin; Z79.899 Other long term (current) drug therapy; Y92.9 Unspecified place or not applicable
CPT/HCPCS: 10045; 10078

== ENCOUNTER 2018-08-18 03:29 | Inpatient (IN) | payer OTHER ==
[2018-08-18] VITALS (48 sets, daily range): BP systolic 75–177; BP diastolic 38–81
[~2018-08-18] VITALS: Ht 165.1 cm; Wt 140.7 kg
[~2018-08-18 03:29] MED LIST changes: +CEFUROXIME500 MG PO; +NEURONTIN600 MG PO; +NYSTATIN100000 UNI SW&SWALLOW; +REMERON15 MG PO; +SYNTHROID50 MCG PO; +TRAMADOL 50 MG50 MG PO
[2018-08-18 04:10] LABS: BE(vivo) -2.1 mmol/L (-2 to +3); PCO2 52.7 mmHg (35.0-45.0); PO2 74.8 mmHg (80.0-100.0); sO2 93.3 % (92.0-98.0)
[2018-08-18 04:11] LABS: pH 7.294 (7.360-7.450)
[2018-08-18 04:22] LABS: ABSOLUTE NEUTROPHILS 10.6 thou/uL (1.4-8.2); HEMATOCRIT 40.3 % (37.0-47.0); LYMPHOCYTES 5.5 % (24.0-44.0); MCH 26.5 pg (26.0-34.0); MCHC 32.1 g/dL (28.0-37.0); MCV 82.6 fL (80.0-100.0); MONOCYTES 2.1 % (1.0-8.0); POLYS 91.4 % (36.0-66.0); RBC 4.88 mil/uL (4.20-5.00); RDW 17.4 % (10.5-14.5); WBC 11.6 thou/uL (4.0-11.0)
[2018-08-18 04:30] LABS: HEMOGLOBIN 12.9 gm/dL (12.0-15.0); PLATELET COUNT 251 thou/uL (150-400)
[2018-08-18 04:37] LABS: URINE BILIRUBIN NEGATIVE (Negative); URINE BLOOD 1+ (Negative); URINE CLARITY SL CLOUDY; URINE COLOR YELLOW; URINE GLUCOSE-RANDOM* NEGATIVE (Negative); URINE KETONES NEGATIVE (Negative); URINE LEUKOCYTES-REFLEX NEGATIVE (Negative); URINE NITRITE-REFLEX NEGATIVE (Negative); URINE PROTEIN (DIPSTICK) 1+ (Negative); URINE SPECIFIC GRAVITY 1.025 (1.005-1.035); URINE UROBILINOGEN 0.2 E.U./dl (0.2-1.0)
[2018-08-18 04:40] LABS: ANION GAP 11 mmol/L (7-16); BUN 15 mg/dL (7-18); CALCIUM 9.6 mg/dL (8.5-10.1); CHLORIDE 101 mmol/L (98-107); CO2 26 mmol/L (21-32); CREATININE 1.3 mg/dL (0.6-1.0); GLUCOSE 153 mg/dL (74-106); POTASSIUM 5.5 mmol/L (3.5-5.1); SODIUM 138 mmol/L (136-145)
[2018-08-18 04:46] LABS: AMP/METHAMP Negative (Negative); BARBITURATES Negative (Negative); BENZODIAZEPINES Negative (Negative); COCAINE Negative (Negative); METHADONE Negative (Negative); OPIATES Negative (Negative); PCP Negative (Negative)
[2018-08-18 04:49] LABS: ALBUMIN 2.9 g/dL (3.4-5.0); SALICYLATE < 2.8 mg/dL (2.8-20.0); SGOT 47 U/L (15-37); SGPT 49 U/L (30-65); TOTAL BILIRUBIN 0.8 mg/dL (<0.1-1.0); TOTAL PROTEIN 8.2 g/dL (6.4-8.2); TROPONIN-I 0.23 ng/mL (<0.06)
[2018-08-18 04:59] LABS: BACTERIA-REFLEX 1-9 Few /HPF (None Seen); FINE GRANULAR CASTS 0-3 Few /LPF (None Seen); HYALINE CASTS 0-3 Few /LPF (None Seen); MUCUS 4-6 Moderate strn/LPF (None Seen); SQUAMOUS 4-10 Moderate /LPF (0-3); URINE RBC 3-10 Few /HPF (0-2); URINE WBC-REFLEX 0-5 Rare /HPF (0-5)
[2018-08-18 05:00] LABS: AMORPHOUS URATES Moderate /LPF (None Seen)
[2018-08-18 07:09] LABS: BE(vivo) -3.2 mmol/L (-2 to +3); HCO3 23.2 mmol/L (22.0-26.0); PCO2 47.1 mmHg (35.0-45.0); PO2 125.8 mmHg (80.0-100.0); sO2 98.2 % (92.0-98.0)
--- NOTE | 2018-08-18 13:57 | NUR ---
VASCULAR ACCESS CONSULTED FOR A PICC/CL ACCESS FOR THIS PT IN ICU. SHE IS ON PRESSORS, PROP, IV ABX, ETC. DUE TO BODY HABITUS, VESSEL DEPTH AND DIAMETER A 5FRTLPICC PLACED IN RT IJ, PLEASE SEE INSERTION NI FOR DETAILS
--- NOTE | 2018-08-18 17:17 | NUR ---
SHIFT SUMMARY: PATIENT IN ICU FROM E.D AT 0800 THIS MORNING. ON THE VENT AND LIGHTLY SEDATED, ABLE TO AWAKEN AND NOD TO Y/N QNS AND FOLLOW COMMANDS. STARTED ON LEVO FOR BP SUPPORT. CENTRAL LINE PLACED BY CRITICAL CARE NURSE SPECIALIST. SIGNIFICANT OTHER GIVEN ICU GUIDELINES AND PRIVACY CODE. WILL CONTINUE TO MONITOR CLOSELY.
[2018-08-19] VITALS (35 sets, daily range): BP systolic 94–160; BP diastolic 38–90
[2018-08-19 05:06] LABS: BE(vivo) -3.7 mmol/L (-2 to +3); HCO3 22.4 mmol/L (22.0-26.0); PCO2 45.6 mmHg (35.0-45.0); PO2 155.8 mmHg (80.0-100.0); sO2 98.8 % (92.0-98.0)
--- NOTE | 2018-08-19 06:00 | NUR ---
REMAINS ON LEVOPHED GTT AT 3 MCG FOR BP SUPPORT
--- NOTE | 2018-08-19 06:00 | NUR ---
REMAINS INTUBATED. SEDATED WITH PROPOFOL GTT. AROUSES EASILY. FOLLOWS COMMANDS. LUNGS ESS CLEAR. 1400 CC UO THIS SHIFT. SINUS RHYTHM. BATHED WILL CONT TO MONITOR.
[2018-08-19 06:21] LABS: ABSOLUTE NEUTROPHILS 4.7 thou/uL (1.4-8.2); BASOPHILS 0.6 % (0.0-2.0); EOSINOPHILS 2.4 % (0.0-3.0); LYMPHOCYTES 19.5 % (24.0-44.0); MCH 26.6 pg (26.0-34.0); MCHC 31.6 g/dL (28.0-37.0); MCV 84.1 fL (80.0-100.0); MONOCYTES 6.7 % (1.0-8.0); POLYS 70.8 % (36.0-66.0); RBC 3.57 mil/uL (4.20-5.00); RDW 17.6 % (10.5-14.5); WBC 6.7 thou/uL (4.0-11.0)
[2018-08-19 06:33] LABS: HEMOGLOBIN 9.5 gm/dL (12.0-15.0); PLATELET COUNT 170 thou/uL (150-400)
[2018-08-19 06:35] LABS: ALBUMIN 1.9 g/dL (3.4-5.0); CALCIUM 7.8 mg/dL (8.5-10.1); CREATININE 0.7 mg/dL (0.6-1.0); POTASSIUM 4.3 mmol/L (3.5-5.1); TOTAL BILIRUBIN 0.3 mg/dL (<0.1-1.0); TOTAL PROTEIN 5.8 g/dL (6.4-8.2)
--- NOTE | 2018-08-19 08:48 | EKG ---
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 Analyst: lesly : 1955 Requested By: Sara Cazares Order Number: [id number] MD: Dipak Lang Measurements Intervals [place] Rate: 109 P: 44 MT: 167 QRS: -8 QRSD: 90 T: 45 QT: 321 QTc: 433 Interpretive Statements Sinus tachycardia Poor R wave progression Compared to ECG 08/16/2018 07:24:54 Heart rate has increased Electronically Signed On 08-19-2018 8:48:42 CDT by Dipak Lang [email or web address] ��������������������������������������������� <ELECTRONICALLY SIGNED> ���������������������������������������� By: Dipak Lang MD, [facility] ��������������������������������������������� 08/19/18 0848 0424 042 Dipak Lang MD, [facility] /EPI
--- NOTE | 2018-08-19 09:55 | NUR ---
VASCULAR ACCESS NURSE ROUNDING. CENTRAL LINE CONTINUES TO BE NECESSARY. THIS PATIENT CONTINUES TO BE ON MULTIPLE CRITICAL IV MEDS AT THIS TIME. WE WILL CONTINUE TO MONITOR ACCESS
[2018-08-19 11:22] LABS: BE(vivo) -1.4 mmol/L (-2 to +3); HCO3 23.8 mmol/L (22.0-26.0); PO2 135.4 mmHg (80.0-100.0); pH 7.372 (7.360-7.450); sO2 98.6 % (92.0-98.0)
--- NOTE | 2018-08-19 12:38 | NUR ---
INITIAL ASSESSMENT: Pt evaluated for d/c planning needs. Pt was hospitalized at [facility] and returned home on 08/17. Pt lives in condo with SO and was independent with ADl's. Pt has walker, cane, w/c and bath bench at home. SO assists with ADL's. Pt currently has nurse that visits through her [place] Medicaid and has correctional case manager through [facility] program. Pt plans on returning home on d/c from hospital. Will remain available to assist as needed.
--- NOTE | 2018-08-19 16:36 | HC ---
[facility] [place] [address] CONSULTATION Name: MELONIEKOLBY Hay Room #: 240-P [facility] IN M.R.#: [id number] Admission: 08/18/18 ������������������ Attend Phys: Mega Ibrahim MD Discharge: ������������������ Date of : 55 Report #: [id number] THIS REPORT FOR: //name// CC: HUMA Ibrahim DATE OF SERVICE: 08/18/2018 TYPE OF REPORT: Infectious diseases consultation. REASON FOR CONSULTATION: I was asked to evaluate concerning septic shock and respiratory failure. HISTORY OF PRESENT ILLNESS: The patient is a 62-year old with underlying history of obesity, diabetes, coronary artery disease, has been in the Emergency Room, now 4 times in the last week. Initially on 08/11/2018, came in with complaints of dysuria, low-grade fever. Chest x-ray showed some basilar changes. Her white count was normal. Urinalysis was unremarkable. She was dismissed on nitrofurantoin and fluconazole. She returned the next day after a fall with complaints of neck pain. No specific findings identified, otherwise had complained of some low-grade fever, abdominal pain, nausea and dizziness. Her white count at that time was 13,000 with a creatinine of 1.1. No other objective findings. She was dismissed on 08/14/2018. She returned with fever, confusion and generalized weakness. She was then hospitalized, finding hypotension, acute renal failure and rhabdomyolysis. Chest x-ray showed left lower lobe atelectasis. CT scan of the abdomen showed hepatic steatosis and mild pancreatic adenopathy. Urinalysis showed bacteriuria. Urine culture showed lactobacillus. Blood cultures were negative. White count was normal and hemoglobin was 10.7. She was treated with ceftriaxone and discharged on 08/17/2018 on Ceftin. She returned today after her fiance found her clutching to the sink nonresponsive, incontinent of bowel, hypotensive and in respiratory failure. No reported trauma. She was intubated in the Emergency Room. There has been minimal tracheal secretions. CT scan of the chest had revealed bilateral consolidative infiltrates in the bases as well as left upper lobe. CT of the abdomen showed no change with persistent liver abnormality with steatosis, otherwise no intra-abdominal acute changes. She has been given IV fluids and vasopressors. She is intubated, now on FiO2 of 80%. Maximum temperature is 103.8 degrees. She was given vancomycin, cefepime and Levaquin. She does move all extremities and does arouse. Mentally, she seems appropriate. Unable to give any further details, but she does report no pain currently. She has had no rashes. No reported adenopathy. No headaches. No history of seizure disorder. She has had minimal cough and no pleuritic chest pain. No hemoptysis. There have been no palpitations. No history of previous syncopal episodes or seizure. She has been incontinent of stool at home but has had no diarrhea since admission. Has an indwelling Hinson catheter. [address] [address] CONSULTATION Name: KOLBY WILHELM Room #: 240-P [facility] IN M.R.#: [id number] Admission: 08/18/18 ������������������ Attend Phys: Mega Ibrahim MD Discharge: ������������������ Date of : 55 Report #: [id number] REVIEW OF SYSTEMS: A 10-point review of systems is negative other than what is reported above. ALLERGIES: AMITRIPTYLINE, AMLODIPINE, ISOSORBIDE, STATINS, PENICILLIN, TETRACYCLINE and PREGABALIN. MEDICATIONS: As noted on her JUN, now on vancomycin, cefepime and Levaquin. PAST MEDICAL HISTORY: Hypertension, hyperlipidemia, diabetes, PA, asthma, gastritis, breast lumpectomy, fibromyalgia, restless leg syndrome, chronic back pain, rosacea, hypothyroidism, major depressive disorder with suicide attempt in 2011 and asthma. PAST SURGICAL HISTORY: Tonsillectomy and sinus surgery. FAMILY HISTORY: Noncontributory. SOCIAL HISTORY: Nonsmoker. No significant alcohol intake. PHYSICAL EXAMINATION: VITAL SIGNS: Temperature is 100.2 degrees, heart rate 84, respiratory rate 19 and blood pressure 88/45. She is on 80% FiO2. She had flushed face, but no other rashes or lesions noted. No palpable adenopathy. HEENT: Eyes, without scleral icterus. Mouth without mucositis. She is orally intubated. NECK: Supple, with no thyromegaly or mass. LUNGS: Coarse bilaterally. HEART: Regular, without murmur, gallop or rub. ABDOMEN: Soft, obese and nontender with no hepatosplenomegaly or mass appreciated. GENITOURINARY: External genitalia unremarkable with no lesions or rash with indwelling Hinson catheter. RECTAL: Not performed. EXTREMITIES: Without clubbing, cyanosis or edema. She was able to move all extremities. NEUROLOGICAL: Sensation to touch was normal. Cranial nerves as much as I could check was within normal limits. She does not appear depressed. Difficult, however, to assess on the ventilator. LABORATORY STUDIES: Hemoglobin 12.9; WBC 11.6; platelet count 257,000; 91% segs and 5% lymphs. Lactate 3.2. Sodium 138, potassium 5.5, bicarbonate 26 and creatinine 1.3. AST 47, ALT 49, alkaline phosphatase 120 and bilirubin 0.8. Urinalysis unremarkable. RADIOLOGICAL DATA: CT scan as noted above. [facility] [address] [address] CONSULTATION Name: KOLBY WILHELM Room #: 240-P [facility] IN M.R.#: [id number] Admission: 08/18/18 ������������������ Attend Phys: Mega Ibrahim MD Discharge: ������������������ Date of : 55 Report #: [id number] IMPRESSION: A 62-year old, underlying diabetes, asthma, fibromyalgia, chronic pain syndrome and depression; presents with fever, septic shock, pneumonia, probable aspiration. Unclear as to the underlying disease process that led to her Emergency Room visits. So far, no bacteremia was identified. I do not think she had a urinary tract infection to explain this presentation. RECOMMENDATIONS: We will continue broad antibiotic coverage with vancomycin, cefepime and azithromycin. Further workup for her pneumonia. She will remain in the ICU for sepsis protocol including vasopressors and ventilatory weaning. I have discussed with nursing at the bedside. ��������������������������������������������� <ELECTRONICALLY SIGNED> ���������������������������������������� By: Chuy Donis MD ��������������������������������������������� 08/19/18 1636 1420 0938 Chuy Donis MD /nt
[2018-08-20] VITALS (8 sets, daily range): BP systolic 122–152; BP diastolic 63–103
--- NOTE | 2018-08-20 03:49 | NUR ---
ASSUMED PT CARE AT 1900. VSS. PT A&0X4. PT ON ROOM AIR WITH 02 SAT >92% SHE OFTEN COMPLAINS OF PAIN IN HER HEAD AND BACK. TYLENOL ADMINISTERED, PARTIAL PAIN RELIEF NOTED. PT SLEPT WELL FOR MOST OF THE NIGHT, HAD 2 SMALL BMs THIS SHIFT. PT IS STEADY ON HER FEET, HOWEVER SHE COMPLAINS OF HIP PAIN THAT PREVENTS HER FROM BREE CARE AFTER USING THE TOILET. PT IS STABLE, WILL CONTINUE TO MONITOR.
[2018-08-20 04:54] LABS: CALCIUM 8.3 mg/dL (8.5-10.1); CREATININE 0.7 mg/dL (0.6-1.0); POTASSIUM 3.5 mmol/L (3.5-5.1)
[2018-08-20 05:00] LABS: HEMATOCRIT 30.5 % (37.0-47.0); HEMOGLOBIN 9.7 gm/dL (12.0-15.0); MCH 26.5 pg (26.0-34.0); MCHC 31.9 g/dL (28.0-37.0); MCV 83.1 fL (80.0-100.0); RBC 3.68 mil/uL (4.20-5.00); RDW 17.6 % (10.5-14.5)
--- NOTE | 2018-08-20 17:45 | NUR ---
ASSUMED PATIENT CARE FROM ICU. A&OX4. STAND BY ASSIST. PATIENT IS FROM HOME WITH SIGNIFICANT OTHER. PATIENT CAME INTO THE ED VIA EMS AND WAS INTUBATED. PATIENT EXTUBATED YESTERDAY AND HAS BEEN ON ROOM AIR WITH SATS IN THE 90'S. PATIENT SOMEWHAT ANXIOUS. WORKING TOWARDS DC GOALS.
--- NOTE | 2018-08-21 02:51 | NUR ---
ASSUMED CARE FOR PT THIS EVENING. PT HAS HIGH AMOUNT OF ANXIETY AND VISIBLE RESTLESS LEGS. REVIEWED HOME MEDICATIONS AND DISCUSSED WITH PT. PT'S REQUIP HAD NOT BEEN RESTARTED. CALLED [employer] SUPER[employer]OR AND GOT ORDER TO RESTART 1MG TID. PT COMPLAINS OF BACK PAIN AND STATES "SHE CANNOT GET COMFORTABLE IN THESE BEDS." I WILL DISCUSS POSSIBLE AQUA HEAT PAD IN THE AM. PT REQUEST TO GET UP AND WALK. NURSE, PT USING A WALKER, OXYGEN TANK, AND CHAIR IN TOW FOLLOWED PT FOR 1/2 LOOP AROUND UNIT. OXYGEN SAT WAS 93% ON RA. GAVE PT PRN LORAZEPAM 2X. HOURLY ROUNDING.
[2018-08-21 05:39] LABS: HEMATOCRIT 32.6 % (37.0-47.0); HEMOGLOBIN 10.4 gm/dL (12.0-15.0); MCH 26.6 pg (26.0-34.0); MCHC 31.9 g/dL (28.0-37.0); MCV 83.4 fL (80.0-100.0); RBC 3.91 mil/uL (4.20-5.00); RDW 17.7 % (10.5-14.5); WBC 9.7 thou/uL (4.0-11.0)
[2018-08-21 05:52] LABS: CALCIUM 8.6 mg/dL (8.5-10.1); CREATININE 0.7 mg/dL (0.6-1.0); POTASSIUM 4.9 mmol/L (3.5-5.1)
[2018-08-21 07:54] VITALS: BP 146/84
--- NOTE | 2018-08-21 15:13 | NUR ---
CALL RECEIVED FROM SIDING APPLICATOR STATING THAT PATIENT REQUESTING TO SPEAK WITH SOMEONE IN CASE MANAGEMENT. CALL PLACED TO PATIENT. PATIENT REQUESTING TO HAVE ADVANCED DIRECTIVE COMPLETED. CALL PLACED TO SPIRITUAL CARE, TO COMPLETE AD WITH PATIENT AT BEDSIDE.
[2018-08-21 15:19] VITALS: BP 143/75
--- NOTE | 2018-08-21 16:10 | NUR ---
SW reviewed chart and spoke with nursing and attending physician. Pt was transferred to 3 from ICU and is progressing towards goals for discharge. Discharge home with HH Is anticipated for tomorrow. ELIAS met with pt at bedside to discuss discharge. Pt states she has an RN that comes weekly to see her at home. Pt has a CM through [employer] and her s/o is her paid caregiver through [place]. Pt requesting info on Advanced Directives. SW/SC will provide info to pt. ELIAS is following to assist as needed with discharge planning.
--- NOTE | 2018-08-21 16:52 | NUR ---
ASSUMED PATIENT CARE AT 0715. PATIENT ASSESSED AND TAKEN TO DIALYSIS BY 0745. PATIENT BROUGHT BACK TO FLOOR AROUND 1230 AND THEN TAKEN TO IR FOR ANGIOGRAM WITH POSSIBLE STENT PLACEMENT AT 1430. PATIENT STILL IN IR AT 1645.
--- NOTE | 2018-08-21 17:50 | NUR ---
ASSUMED PATIENT CARE AT 0715. A&OX4. PATIENT NOT ANXIOUS TODAY. WALKED IN BENITES WITH WALKER AND GAIT BELT. PATIENT ON ROOM AIR BUT GETS VERY SOA WITH ANY ACTIVITY. DUE TO THIS FACTOR PATIENT IS A STAND BY ASSIST WITH A GB. PLAN IS FOR PATIENT TO DISCHARGE HOME WITH HOME HEALTH TOMORROW.
[2018-08-21 19:30] VITALS: BP 149/69
[2018-08-22 03:55] VITALS: BP 154/79
--- NOTE | 2018-08-22 04:56 | NUR ---
PT WANTING TO MAKE GREATER STRIDES IN HER QUEST FOR DISCHARGE. PT WALKING THE UNIT WITH A WALKER AND STANDBY ASSISTANCE. PT VOICES DESIRE TO RETURN HOME. TRANSITIONED TO ORAL ANTIBIOTICS AND TOLERATED WELL. BLOOD SUGAR IS STAYING BELOW 150 THIS HS. HOURLY ROUNDING.
[2018-08-22 07:51] VITALS: BP 142/92
[2018-08-22] MEDS ORDERED: CEFDINIR300 MG PO (09:57)
[2018-08-22 11:10] VITALS: BP 121/59
[2018-08-22 12:34] VITALS: BP 121/59
--- NOTE | 2018-08-22 13:17 | NUR ---
PT IS A&0X4, UP W/CLOSE SBA AND WALKER FOR TOILETING. GOOD APPETITE, HAS REDNESS ON FACE, CHRONIC SHE STATES. PICC LINE WILL BE PULLED FOR HER IMMINENT D/C; PT STATES SHE CANNOT GO HOME WITHOUT SOMEONE THERE, HER SIGNIFICANT OTHER WILL PICK HER UP AFTER WORK. ALL PAPERWORK SIGNED, SEE INTERVENTION FOR ASSESSMENT AND CARDIAC MONITORING
--- NOTE | 2018-08-22 14:36 | NUR ---
DISCHARGE NOTE: ELIAS reviewed chart and spoke with nursing and attending physician. Pt is medically stable for discharge home today. Orders written for HH services. ELIAS met with pt at bedside to discuss discharge plan. Pt is agreeable with HH services. Pt states an RN comes monthly, not weekly to assist with medications. SW provided options for HH agencies. No preference voiced. ELIAS confirmed pt's home address and phone number. Pt's PCP is Dr. Shaffer at [facility]. Pt's classification case manager with [facility] will be providing transportation home. ELIAS contacted intake at [facility] for new HH referral. Awaiting confirmation from [facility] if they can accept pt on service. Contact info for [facility] placed in pt's discharge summary. ELIAS is following to finalize discharge.
[2018-08-22 17:07] LABS: ADENOVIRUS Negative (Negative); INFLUENZA A Negative (Negative); INFLUENZA B Negative (Negative); METAPNEUMOVIRUS Negative (Negative); PARAINFLUENZA 1 Negative (Negative); PARAINFLUENZA 2 Negative (Negative); PARAINFLUENZA 3 Negative (Negative); RHINOVIRUS Negative (Negative); RSV A Negative (Negative); RSV B Negative (Negative)
== END 2018-08-22 18:43 | disposition home health service (06) | DRG 871 ==
LOC: ER 03:29 → EROBS 07:03 → 3W 07:03 → ICU 07:41 → 3W 08-20 15:39
PROVIDERS: Hospitalist; Internal Medicine Pulmonary Disease; Pediatrics; Specialist; Student in an Organized Health Care Education/Training Program; ADMIT Family Medicine
PROC: 0BH17EZ Insertion of Endotracheal Airway into Trachea, Via Natural or Artificial Opening (ICD-10-PCS; principal; 2018-08-18)
PROC: 5A1935Z Respiratory Ventilation, Less than 24 Consecutive Hours (ICD-10-PCS; principal; 2018-08-18)
DX: A41.9 Sepsis, unspecified organism (principal); J96.01 Acute respiratory failure with hypoxia; J96.02 Acute respiratory failure with hypercapnia; J18.9 Pneumonia, unspecified organism; Z68.43 Body mass index [BMI] 50.0-59.9, adult; G93.40 Encephalopathy, unspecified; N17.9 Acute kidney failure, unspecified; E87.2 Acidosis; I10 Essential (primary) hypertension; E78.5 Hyperlipidemia, unspecified; E11.9 Type 2 diabetes mellitus without complications; F32.9 Major depressive disorder, single episode, unspecified; J45.909 Unspecified asthma, uncomplicated; I25.10 Atherosclerotic heart disease of native coronary artery without angina pectoris; R74.0 Nonspecific elevation of levels of transaminase and lactic acid dehydrogenase [LDH]; E88.09 Other disorders of plasma-protein metabolism, not elsewhere classified; E87.5 Hyperkalemia; M79.7 Fibromyalgia; G25.81 Restless legs syndrome; E66.01 Morbid (severe) obesity due to excess calories; E03.9 Hypothyroidism, unspecified; I25.2 Old myocardial infarction; Z79.899 Other long term (current) drug therapy; Z91.5 Personal history of self-harm; Z88.1 Allergy status to other antibiotic agents; Z88.0 Allergy status to penicillin; Z88.7 Allergy status to serum and vaccine; Z88.8 Allergy status to other drugs, medicaments and biological substances; Z83.3 Family history of diabetes mellitus; Z82.49 Family history of ischemic heart disease and other diseases of the circulatory system
CPT/HCPCS: 10078; 10203; 10779; 10879